=== PATIENT | female | born 1950 | race African-American/Black ===

== ENCOUNTER 2017-10-15 05:24 | Day surgery (SDC) | payer OTHER, BC ==
[~2017-10-15] VITALS: Ht 170.2 cm; Wt 140.6 kg
[~2017-10-15 05:24] MED LIST: ACID REDUCER20 MG PO; APRESOLINE50 MG PO; CALPHRON667 MG PO; CATAPRES-TTS 31 EACH TD; CO Q10 PO; COREG CR80 MG PO; ECOTRIN325 MG PO; HYDROCODON-ACE1 EAC7 PO; HYDROXYZINE HCL10 MG PO; ISOSORBIDE MONO30 MG PO; K-DUR10 MEQ PO; LANTUS 3 M100 UNITS1 SC; LASIX20 MG PO; LIPITOR40 MG PO; LYRICA25 MG PO; MAGNESIUM250 MG PO; MITIGARE0.6 MG PO; NORVASC10 MG PO; NOVOLOG MI100 UNIT/2 SC; SINGULAIR10 MG PO; SOLODYN80 MG PO; ZYRTEC10 M3 PO
[2017-10-15 06:21] VITALS: BP 146/67
[2017-10-15 06:38] LABS: HEMATOCRIT 35.3 % (36.0-46.0); MCH 24.6 PG (29.0-34.0); MCHC 28.3 G/DL (30.0-36.0); MCV 86.7 FL (83-99); PLATELET COUNT 133 K/uL (156-360); RBC DIS.WIDTH-SD 57.1 % (39-53); RED BLOOD COUNT 4.07 M/uL (3.80-5.20); WHITE BLOOD COUNT 5.9 K/uL (4.1-10.2)
[2017-10-15 06:54] LABS: CHLORIDE 105 MEQ/L (99-109); POTASSIUM 4.1 MEQ/L (3.7-5.4); SODIUM 144 MEQ/L (136-147)
[2017-10-15 06:59] LABS: CREATININE 4.3 MG/DL (0.6-1.3); GFR ESTIMATE (CALCULATED) 13 mL/min/; GLUCOSE 89 mg/dL (70-99); UREA NITROGEN (BUN) 84 mg/dL (9-23)
[2017-10-15 07:19] LABS: PLAT.SUFFICIENCY DECREASED
[2017-10-15 10:32] VITALS: BP 135/63
[2017-10-15 11:35] VITALS: BP 136/73
== END 2017-10-15 12:30 | disposition home or self-care (01) ==
LOC: SDC 05:24
PROVIDERS: Surgery
DX: I12.0 Hypertensive chronic kidney disease with stage 5 chronic kidney disease or end stage renal disease (principal); E11.22 Type 2 diabetes mellitus with diabetic chronic kidney disease; N18.6 End stage renal disease; Z79.4 Long term (current) use of insulin; E78.00 Pure hypercholesterolemia, unspecified; I25.10 Atherosclerotic heart disease of native coronary artery without angina pectoris; I83.90 Asymptomatic varicose veins of unspecified lower extremity; J45.909 Unspecified asthma, uncomplicated
CPT/HCPCS: 80048; 82948; 85027; 87641; 93005; J0690; J1644; J2720